=== PATIENT | male | born 1940 | race Caucasian/White ===

== ENCOUNTER 2019-01-18 13:13 | Emergency (ER) | payer MEDICARE ==
[2019-01-18] MEDS ORDERED: BOOSTRIX IM ONE (13:58)
[2019-01-18] MEDS ORDERED: XYLOCAINE 1% 20 mL INFILTRATI ONE (13:58)
[2019-01-18] MEDS ORDERED: ZOFRAN IV ONE (14:36)
[2019-01-18 14:55] LABS: Basophils # (Auto) 0.1 K/mm3 (0.0-0.1); Basophils % (Auto) 0.4 % (0.0-1.8); Eosinophils # (Auto) 0.1 K/mm3 (0.0-0.4); Eosinophils % (Auto) 0.4 % (0.0-4.3); Hematocrit 42.6 % (35.5-45.6); Hemoglobin 14.3 gm/dl (11.8-15.2); Lymphocytes # (Auto) 0.8 K/mm3 (1.2-5.4); Lymphocytes % (Auto) 6.2 % (13.4-35.0); Mean Corpuscular HGB Conc 34 % (32-34); Mean Corpuscular Volume 96 fl (84-94); Monocytes # (Auto) 0.7 K/mm3 (0.0-0.8); Platelet Count 255 K/mm3 (140-440); Red Blood Count 4.43 M/mm3 (3.65-5.03); Red Cell Distribution Width 16.7 % (13.2-15.2)
--- NOTE | 2019-01-18 15:10 | XRay Report ---
CHEST 1 VIEW INDICATION: dizziness. COMPARISON: none FINDINGS: SUPPORT DEVICES: None. HEART / MEDIASTINUM: No significant abnormality. LUNGS / PLEURA: No significant pulmonary or pleural abnormality. No pneumothorax. ADDITIONAL FINDINGS: IMPRESSION: 1. No acute findings. Signer Name: Samuel Nolan MD Signed: 01/18/2019 3:05 PM Workstation Name: [id number]
[2019-01-18 15:21] LABS: Alanine Aminotransferase 76 units/L (7-56); Albumin 3.7 g/dL (3.9-5); BUN/Creatinine Ratio 22; Blood Urea Nitrogen 35 mg/dL (9-20); Calcium 9.6 mg/dL (8.4-10.2); Hemolysis Index 24
[2019-01-18] MEDS ORDERED: HYDROGEN PEROXIDE ONE (15:33)
--- NOTE | 2019-01-18 15:39 | Emergency Department Report ---
<MEENU CANAS III Riley - Last Filed: 01/18/19 16:51> ED General Adult HPI - General Chief complaint: Dizziness Stated complaint: FALL DIZZY Time Seen by Provider: 01/18/19 13:54 - Related Data Previous Rx's Medication Instructions Recorded Last Taken Type Clopidogrel [Plavix] 75 mg PO QDAY #30 tablet 08/19/15 Unknown Rx Simvastatin (Nf) [Zocor TAB] 40 mg PO QHS #30 tablet 08/19/15 Unknown Rx amLODIPine 10 mg PO DAILY #30 08/19/15 Unknown Rx metFORMIN [Glucophage] 500 mg PO BIDDIAB #60 tablet 08/19/15 Unknown Rx Allergies Allergy/AdvReac Type Severity Reaction Status Date / Time aspirin Allergy Nausea Verified 09/14/14 08:44 ED Past Medical Hx - Medications Home Medications: Home Medications Medication Instructions Recorded Confirmed Last Taken Type Clopidogrel [Plavix] 75 mg PO QDAY #30 tablet 08/19/15 Unknown Rx Simvastatin (Nf) [Zocor TAB] 40 mg PO QHS #30 tablet 08/19/15 Unknown Rx amLODIPine 10 mg PO DAILY #30 08/19/15 Unknown Rx metFORMIN [Glucophage] 500 mg PO BIDDIAB #60 tablet 08/19/15 Unknown Rx ED Course - Reevaluation(s) Reevaluation #1: Patient signed out to me from previous Dr. Dr. Zambrano. Patient has a CT C-spine pending, Once the C-spine is results of the patient will be disposed. Disposition 01/18/19 16:00 Reevaluation #2: I discussed all results with family and the family translated to the patient. The patient will be transferred to [facility]. Family and patient agree with plan of care and transfer. 01/18/19 16:49 - Consultations Consultation #1: [facility] paced 01/18/19 16:43 [facility] been accepted [facility] Patient will be transferred via EMS ER to ER. 01/18/19 16:49 ED Medical Decision Making - Lab Data Result diagrams: 01/18/19 14:45 01/18/19 14:45 - EKG Data -: EKG Interpreted by Me EKG shows normal: sinus rhythm, axis, intervals, QRS complexes, ST-T waves Rate: normal - Radiology Data Radiology results: report reviewed, image reviewed interpreted by me: No acute findings on chest x-ray CT head/brain wo con INDICATION / CLINICAL INFORMATION: 78 years Male; closed head injury. 78-year-old male with closed head injury TECHNIQUE: Routine CT head without contrast. All CT scans at this location are performed using CT dose reduction for ALARA by means of automated exposure control. COMPARISON: None. FINDINGS: BRAIN / INTRACRANIAL CONTENTS: No acute hemorrhage, mass effect, midline shift, hydrocephalus, or acute, large territorial infarct. Mild cerebral and cerebellar atrophy. There are minimal areas of decreased attenuation in the white matter of the cerebral hemispheres. These are nonspecific findings and may be related to microangiopathy (hypertension, diabetes, atherosclerosis), given the patient's age. It might be difficult to evaluate for small areas of ischemia without diffusion imaging by MRI. CRANIOCERVICAL JUNCTION: No significant abnormality. ORBITS: No significant abnormality of visualized orbits. SINUSES / MASTOIDS: No significant abnormality of the visualized paranasal sinuses or mastoid air cells. ADDITIONAL FINDINGS: Comminuted fracture of the condylar head of the mandible noted on the right - predominantly in a vertical plane. The medial fragment is anteriorly displaced approximately 8 mm respect to the remainder of the condyle. Subcutaneous soft tissue swelling seen in the left malar region. No definitive signs of underlying fracture appreciated. Minimal atherosclerotic disease is seen in the anterior circulation. IMPRESSION: 1. No focal mass, hemorrhage, hydrocephalus, or acute, large territorial infarct. 2. Comminuted fracture of the condylar head of the mandible on the right. Critical Care Time: Yes Critical Care Time: 35 minutes ED Disposition Clinical Impression: Fall Qualifiers: Encounter type: initial encounter Qualified Code(s): W19.XXXA - Unspecified fall, initial encounter Headache Qualifiers: Headache type: post-traumatic Headache chronicity pattern: acute headache Intractability: not intractable Qualified Code(s): G44.319 - Acute post- traumatic headache, not intractable Mandible open fracture Qualifiers: Encounter type: initial encounter Mandible location: condylar process Laterality: right Qualified Code(s): S02.611B - Fracture of condylar process of right mandible, initial encounter for open fracture Chin laceration Qualifiers: Encounter type: initial encounter Qualified Code(s): S01.81XA - Laceration without foreign body of other part of head, initial encounter Disposition: DC/TX-70 ANOTHER TYPE HLTHCARE Is pt being admited?: No Does the pt Need Aspirin: No Condition: Critical Referrals: ANSLEY MORGANOSCEOLA MD KAREN [Primary Care Provider] - 3-5 Days Time of Disposition: 16:50 <ANAMIKA ZAMBRANO - Last Filed: 01/19/19 20:25> ED General Adult HPI - 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 Patient lost his balance and fell striking his head this morning. Patient is on blood thinners and complains of a mild headache. Patient also complains of some shortness of breath when laying flat. -: Sudden Location: head Quality: aching Consistency: constant Improves with: none Worsens with: none Associated Symptoms: denies other symptoms Treatments Prior to Arrival: none ED Review of Systems ROS: Stated complaint: FALL DIZZY Other details as noted in HPI Comment: All other systems reviewed and negative Constitutional: denies: chills, fever Eyes: denies: eye pain, eye discharge, vision change ENT: denies: ear pain, throat pain Respiratory: denies: cough, shortness of breath, wheezing Cardiovascular: denies: chest pain, palpitations Endocrine: no symptoms reported Gastrointestinal: denies: abdominal pain, nausea, diarrhea Genitourinary: denies: urgency, dysuria Musculoskeletal: denies: back pain, joint swelling, arthralgia Skin: denies: rash, lesions Neurological: denies: headache, weakness, paresthesias Psychiatric: denies: anxiety, depression Hematological/Lymphatic: denies: easy bleeding, easy bruising ED Past Medical Hx - Past Medical History Hx Hypertension: Yes Hx Asthma: No Hx COPD: No Hx HIV: No Additional medical history: High cholesterol stroke - Surgical History Additional Surgical History: "stomach" surgery 3 yrs ago - Social History Smoking Status: Never Smoker ED Physical Exam - General Limitations: No Limitations General appearance: alert, in no apparent distress - Head Head exam: Present: normocephalic, other (recently laceration of the submandibular region) - Eye Eye exam: Present: normal appearance, PERRL, EOMI - ENT ENT exam: Present: mucous membranes moist - Neck Neck exam: Present: normal inspection - Respiratory Respiratory exam: Present: normal lung sounds bilaterally. Absent: respiratory distress - Cardiovascular Cardiovascular Exam: Present: regular rate, normal rhythm. Absent: systolic murmur, diastolic murmur, rubs, gallop - GI/Abdominal GI/Abdominal exam: Present: soft, normal bowel sounds. Absent: distended, tenderness - Rectal Rectal exam: Present: deferred - Extremities Exam Extremities exam: Present: normal inspection - Back Exam Back exam: Present: normal inspection - Neurological Exam Neurological exam: Present: alert, oriented X3, CN II-XII intact. Absent: motor sensory deficit - Psychiatric Psychiatric exam: Present: normal affect, normal mood - Skin Skin exam: Present: warm, dry, normal color, other (recently laceration submental region; skin tears of the feet). Absent: rash ED Course Vital Signs 01/18/19 01/18/19 01/18/19 14:00 14:19 15:14 Temperature 98.7 F Pulse Rate 78 87 Respiratory 17 17 18 Rate Blood Pressure 123/60 Blood Pressure 128/69 [Right] O2 Sat by Pulse 100 100 Oximetry 01/18/19 01/18/19 01/18/19 15:45 16:00 16:01 Temperature Pulse Rate 58 L 87 61 Respiratory 20 18 20 Rate Blood Pressure Blood Pressure 129/64 [Right] O2 Sat by Pulse 100 100 100 Oximetry 01/18/19 01/18/19 01/18/19 16:15 16:31 16:45 Temperature Pulse Rate 59 L 71 78 Respiratory 22 19 18 Rate Blood Pressure Blood Pressure [Right] O2 Sat by Pulse 100 100 100 Oximetry 01/18/19 01/18/19 01/18/19 17:00 17:15 17:31 Temperature Pulse Rate 65 61 64 Respiratory 15 17 21 Rate Blood Pressure 86/64 121/50 126/50 Blood Pressure [Right] O2 Sat by Pulse 95 96 96 Oximetry 01/18/19 01/18/19 17:59 18:30 Temperature Pulse Rate 68 60 Respiratory 17 18 Rate Blood Pressure Blood Pressure 126/64 110/67 [Right] O2 Sat by Pulse 100 100 Oximetry ED Medical Decision Making - Lab Data Result diagrams: 01/18/19 14:45 01/18/19 14:45 Lab Results 01/18/19 01/18/19 01/18/19 Range/Units 14:45 14:45 15:58 WBC 13.6 H (4.5-11.0) K/mm3 RBC 4.43 (3.65-5.03) M/mm3 Hgb 14.3 (11.8-15.2) gm/dl Hct 42.6 (35.5-45.6) % MCV 96 H (84-94) fl MCH 32 (28-32) pg MCHC 34 (32-34) % RDW 16.7 H (13.2-15.2) % Plt Count 255 (140-440) K/mm3 Lymph % (Auto) 6.2 L (13.4-35.0) % [place] % (Auto) 5.0 (0.0-7.3) % Eos % (Auto) 0.4 (0.0-4.3) % Baso % (Auto) 0.4 (0.0-1.8) % Lymph # 0.8 L (1.2-5.4) K/mm3 [place] # 0.7 (0.0-0.8) K/mm3 Eos # 0.1 (0.0-0.4) K/mm3 Baso # 0.1 (0.0-0.1) K/mm3 Seg Neutrophils % 88.0 H (40.0-70.0) % Seg Neutrophils # 12.0 H (1.8-7.7) K/mm3 Sodium 136 L (137-145) mmol/L Potassium 5.1 H (3.6-5.0) mmol/L Chloride 100.9 (98-107) mmol/L Carbon Dioxide 23 (22-30) mmol/L Anion Gap 17 mmol/L BUN 35 H (9-20) mg/dL Creatinine 1.6 H (0.8-1.5) mg/dL Estimated GFR 42 ml/min BUN/Creatinine Ratio 22 % Glucose 128 H (75-100) mg/dL Calcium 9.6 (8.4-10.2) mg/dL Total Bilirubin 0.70 (0.1-1.2) mg/dL AST 35 (5-40) units/L ALT 76 H (7-56) units/L Alkaline Phosphatase 98 (35-129) units/L Troponin T < 0.010 < 0.010 (0.00-0.029) ng/mL NT-Pro-B Natriuret Pep 97.53 (0-900) pg/mL Total Protein 7.3 (6.3-8.2) g/dL Albumin 3.7 L (3.9-5) g/dL Albumin/Globulin Ratio 1.0 % Critical care attestation.: If time is entered above; I have spent that time in minutes in the direct care of this critically ill patient, excluding procedure time.
--- NOTE | 2019-01-18 15:39 | Cat Scan Report ---
CT head/brain wo con INDICATION / CLINICAL INFORMATION: 78 years Male; closed head injury. 78-year-old male with closed head injury TECHNIQUE: Routine CT head without contrast. All CT scans at this location are performed using CT dos e reduction for ALARA by means of automated exposure control. COMPARISON: None. FINDINGS: BRAIN / INTRACRANIAL CONTENTS: No acute hemorrhage, mass effect, midline shift, hydrocephalus, or acu te, large territorial infarct. Mild cerebral and cerebellar atrophy. There are minimal areas of decreased attenuation in the white matter of the cerebral hemispheres. The se are nonspecific findings and may be related to microangiopathy (hypertension, diabetes, atheroscle rosis), given the patient's age. It might be difficult to evaluate for small areas of ischemia withou t diffusion imaging by MRI. CRANIOCERVICAL JUNCTION: No significant abnormality. ORBITS: No significant abnormality of visualized orbits. SINUSES / MASTOIDS: No significant abnormality of the visualized paranasal sinuses or mastoid air eliza ls. ADDITIONAL FINDINGS: Comminuted fracture of the condylar head of the mandible noted on the right - pr edominantly in a vertical plane. The medial fragment is anteriorly displaced approximately [address] to the remainder of the condyle. Subcutaneous soft tissue swelling seen in the left malar region. No definitive signs of underlying fr acture appreciated. Minimal atherosclerotic disease is seen in the anterior circulation. IMPRESSION: 1. No focal mass, hemorrhage, hydrocephalus, or acute, large territorial infarct. 2. Comminuted fracture of the condylar head of the mandible on the right. Signer Name: Kennedy Santos MD, III Signed: 01/18/2019 3:35 PM Workstation Name: [id number]
[2019-01-18] MEDS ORDERED: NACL 0.9% 500 ML IR ONE (15:42)
--- NOTE | 2019-01-18 16:33 | Cat Scan Report ---
CT cervical spine wo con INDICATION / CLINICAL INFORMATION: 78 years Male; fall with neck pain. TECHNIQUE: Axial CT images of the cervical spine were obtained. Sagittal and coronal reformatted images were pr oduced. All CT scans at this location are performed using CT dose reduction for ALARA by means of aut omated exposure control. COMPARISON: None available. FINDINGS: POST-SURGICAL CHANGES: None. ALIGNMENT: Normal cervical lordosis seen without significant scoliosis. VERTEBRAE: No signs of fracture. Vertebral bodies are grossly normal in height throughout. No signif icant facet joint disease or osseous foraminal narrowing appreciated. INTRAVERTEBRAL DISCS: Mild disc space narrowing seen at C5-6. Mild disc disease seen at this level as well as other levels. No dominant herniation seen. No signs of canal stenosis. PARASPINAL SOFT TISSUES: No significant abnormality. ADDITIONAL FINDINGS: Bulla/bleb seen in the lung apices on the left. Atherosclerotic disease seen in the carotid bifurcation regions bilaterally. IMPRESSION: 1. No signs of acute bony trauma to the cervical spine. Signer Name: Kennedy Santos MD, III Signed: 01/18/2019 4:29 PM Workstation Name: [email or web address]
[2019-01-18] MEDS ORDERED: ceFAZolin 2 GM in NACL 0.9% 100 ML IV ONE (17:00)
[2019-01-18 19:42] VITALS: BP 110/67
== END 2019-01-18 19:46 | disposition other institution (70) ==
LOC: ED 13:13
DX: S02.611B Fracture of condylar process of right mandible, initial encounter for open fracture (principal); S90.812A Abrasion, left foot, initial encounter; S90.811A Abrasion, right foot, initial encounter; I10 Essential (primary) hypertension; E78.00 Pure hypercholesterolemia, unspecified; Z88.6 Allergy status to analgesic agent; Z79.899 Other long term (current) drug therapy; W18.30XA Fall on same level, unspecified, initial encounter; Y93.89 Activity, other specified; Y92.89 Other specified places as the place of occurrence of the external cause; Y99.8 Other external cause status
CPT/HCPCS: 36415; 70450; 71045; 72125; 80053; 83880; 84484; 85025; 90715; 93005; 93010; 96365; 96375; 99291; J0690; J2405